=== PATIENT | female | born 1935 | race Two or more races ===

== ENCOUNTER → 2017-02-18 | Outpatient (CLI) | payer MEDICARE, MEDICAID ==
--- NOTE | 2017-02-18 13:57 | RADRPT ---
PROCEDURE: Left knee radiographs. CLINICAL INDICATION: Left knee pain. TECHNIQUE: Four views. Weight bearing. Frontal, lateral, oblique, and patellar view. COMPARISON: No prior studies are available for comparison. FINDINGS: There is no fracture or dislocation. The soft tissues are normal. There are degenerative changes with osteophytes arising from all 3 joint compartment margins. There is medial joint compartment narrowing and subarticular sclerosis. There is no lytic or blastic lesion. There is no radiopaque foreign body. IMPRESSION: 1. 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 RPTAT: QQ .Toni Wiley MD, MD Date Time Electronically viewed and signed by .Toni Wiley MD, on 02/18/2017 13:57 .R/
--- NOTE | 2017-02-18 14:15 | RADRPT ---
PROCEDURE: XR Pelvis and Hips. CLINICAL INDICATION: Pelvic pain. Bilateral hip pain. TECHNIQUE: Five views. Frontal pelvis. Frontal and lateral right hip. Frontal and lateral left hip. COMPARISON: No prior studies are available for comparison. FINDINGS: There is no fracture or dislocation. The soft tissues are normal. Articular surfaces are intact. There are degenerative changes of the lower lumbar spine. There is no lytic or blastic lesion. There is no radiopaque foreign body. IMPRESSION: 1. Degenerative changes of the lower lumbar spine. 2. Otherwise unremarkable x-ray pelvis and bilateral hips. RPTAT: QQ .Toni Wiley MD, MD Date Time Electronically viewed and signed by .Toni Wiley MD, on 02/18/2017 14:15 .R/
== END | disposition home or self-care (01) ==
LOC: HKI 10:24
PROVIDERS: ATTEND Orthopaedic Surgery
DX: M25.562 Pain in left knee (principal); M17.12 Unilateral primary osteoarthritis, left knee; M51.36 Other intervertebral disc degeneration, lumbar region; M54.16 Radiculopathy, lumbar region; Z96.651 Presence of right artificial knee joint
CPT/HCPCS: 73523; 73564; G0463